=== PATIENT | female | born 1990 | race Caucasian/White ===

== ENCOUNTER → 2018-03-07 14:36 | Outpatient (CLI) | payer MEDICAID, SELFPAY ==
[2018-03-10 14:29] LABS: HPV Reflexed? NOT INDICATED
== END ==
PROVIDERS: Visit Provider Obstetrics & Gynecology
DX: Z12.4 Encounter for screening for malignant neoplasm of cervix (principal); Z12.72 Encounter for screening for malignant neoplasm of vagina
CPT/HCPCS: 88175; G0145

== ENCOUNTER → 2018-06-28 09:12 | Outpatient (CLI) | payer MEDICAID, SELFPAY | PROVIDERS: Family Provider Nurse Practitioner Family; PCP Nurse Practitioner Family; Referring Provider Internal Medicine Cardiovascular Disease; Visit Provider Internal Medicine Cardiovascular Disease | DX: R55 Syncope and collapse (principal) | CPT/HCPCS: 93225; 93226 ==

== ENCOUNTER → 2019-06-26 | Outpatient (CLI) | payer MEDICAID, SELFPAY ==
[2019-06-26 09:42] VITALS: BMI 40.1
[2019-07-01 14:07] LABS: Age Gdln ACOG Testing 30-65 (.)
[2019-07-02 12:45] LABS: HPV APTIMA, High Risk Negative (Negative)
[2019-07-02 12:52] LABS: HPV Reflexed? YES, CHARGE PATIENT
== END | disposition home or self-care (01) ==
LOC: LABSPEC 14:22
PROVIDERS: Visit Provider Obstetrics & Gynecology
DX: Z12.4 Encounter for screening for malignant neoplasm of cervix (principal)
CPT/HCPCS: 87624; 88175; G0145

== ENCOUNTER → 2020-07-22 13:42 | Outpatient (CLI) | payer MEDICAID, SELFPAY ==
[2020-06-24 08:47] VITALS: BMI 38.0
[2020-07-28 20:06] LABS: HPV APTIMA, High Risk Negative (Negative)
== END ==
PROVIDERS: Visit Provider Obstetrics & Gynecology
DX: Z12.4 Encounter for screening for malignant neoplasm of cervix (principal)
CPT/HCPCS: 87624; 88175; G0145

== ENCOUNTER 2023-07-20 22:00 | Inpatient (IN) | payer MEDICAID, SELFPAY ==
[2023-07-20] MEDS: Lactated Ringers 1,000 ML 200 ML IV (22:20)
[2023-07-20 22:27] VITALS: BP 121/66; PULSE 107
--- NOTE | 2023-07-20 22:42 | HP.PCM.OB_ITS ---
HPI - General General Date of Admission: 07/20/23 Date of Service: 07/20/23 Chief Complaint: abd pain HPI Narrative YOKO NICOLE, is a 33 F who presents complaining of abdominal pain has gotten worse and worse throughout the evening. She has known history of P PROM that occurred likely within the last 5 to 7 days. She was seen by maternal- medicine earlier this week and again yesterday and counseled on risk benefits and alternatives and patient wanted expectant management. She denies any fevers or chills. She just started having increased abdominal pain and it became more regular and she arrived to labor and delivery for evaluation. Maternal Data Information Final ELIER: [birth year]22 [facility] Medical History (Updated 07/20/23 @ 22:[address] Abby Gurrola MD) Asthma Cardiac arrest (09/2016) Hiatal hernia Hyperlipidemia Obesity Postoperative atrial fibrillation (09/2016) Type 2 diabetes mellitus Home Medications albuterol sulfate 90 mcg/actuation aerosol inhaler 2 puff inhalation Q4H PRN PRN Wheezing ##1 10/22/16 [Rx Last Taken Unknown] aspirin 81 mg tablet,delayed release 81 mg PO DAILY afib 06/26/19 [History Last Taken 07/20/23] insulin detemir U-100 100 unit/mL subcutaneous solution (Levemir U-100 Insulin) 60 unit subcut QHS 06/24/20 [History Last Taken Unknown] loratadine 10 mg tablet 10 mg PO DAILY allergies 06/24/20 [History Last Taken 07/19/23] Allergy/AdvReac Type Severity Reaction Status Date / Time codeine Allergy Other Verified 07/20/23 22:22 nalbuphine HCl [From Nubain] Allergy Nausea Verified 07/20/23 22:22 oxycodone HCl [From Percocet] Allergy Nausea/Vom/ Verified 07/20/23 22:22 Diarrhea Family History Mother Hypertension Surgical History History of tonsillectomy Hx of cholecystectomy Vital Signs Vital Signs Vital Signs: 07/20/23 22:27 07/20/23 22:27 Pulse Rate 107 H Blood Pressure 121/66 H BP Systolic 121 BP Diastolic 66 Physical Exam Narrative Awake, alert, no acute distress, no rebound or guarding. No fundal tenderness. Patient appears very uncomfortable with contraction PARACHUTE TAPER exam cervix is approximately 1 cm thick, firm, posterior. No gross vaginal bleeding. Extremities: Trace edema. Brief ultrasound done transabdominally. Fetus is in the lower uterine segment. No measurable fluid. No heart tones detected. Labs Labs Labs: Blood Type O POSITIVE Antibody Screen NEGATIVE Hct 36.3 % (37-47) L Hgb 12.3 g/dL (12.0-15.0) Obstetrics Ultrasound Syphilis Total Ab Pending Rubella IgG Antibody 74.7 IU/mL Hep Bs Antigen Negative (Negative) Glucose 1 Hr 50 gm 198 mg/dL (70-140) H Gest Glucose Tolerance MG/DL Group B Strep DNA Negative (Negative) Assessment & Plan (1) Incomplete : PLAN: Patient has significant medical history significant for maternal obesity, advanced maternal age, type 2 diabetes. Known P PROM. There were heart tones yesterday. However today confirms incomplete with 16-week demise. Risk benefits and alternatives of expectant management versus Cytotec to help with the induction were discussed with the patient, her questions were answered to her satisfaction she desires to proceed with Cytotec. We discussed pain control measures. If becomes febrile will need antibiotics. Patient denies any holiness objections to blood products if needed. IV started. Revie wed with her possible risk for D&C if unable to deliver placenta spontaneously. Patient states understanding and agreement with plan. Patient partner is present (2) 16 weeks gestation of :
[2023-07-20 22:43] LABS: Absolute Lymphocyte Count 2.17 X10^3/uL (0.83-4.51); Absolute Neutrophil Count 17.6 X10^3/uL (2.0-7.7); Basophil# 0.07 X10^3/uL; Basophil% 0.3 % (0-1); Eosinophil# 0.08 X10^3/uL; Eosinophils% 0.4 % (0-5); Hematocrit 36.3 % (37-47); Hemoglobin 12.3 g/dL (12.0-15.0); Lymphocyte # 2.17 X10^3/ul (0.83-4.51); Lymphocyte % 10.2 % (19-41); Mean Corp Hgb Conc 33.9 g/dL (32-36); Mean Corpuscular Hgb 27.2 pg (27.0-32.0); Mean Corpuscular Volume 80.3 fL (81-99); Mean Platelet Vol. 9.6 fl (6.2-12.0); Monocyte# 1.09 X10^3/uL; Monocyte% 5.1 % (0-10); NRBC Flagged by Analyzer 0 % (0-5); Neutrophil % 82.4 % (47-70); Platelet Count 199 K/mm3 (150-450); RBC Distribution Width CV 15.6 % (11.6-14.6); RBC Distribution Width SD 45.3 fl (35.1-43.9); Red Blood Count 4.52 M/mm3 (4.2-5.4); White Blood Count 21.4 K/mm3 (4.4-11.0)
[2023-07-20] MEDS: fentaNYL 100 MCG/2 ML Ampul IV (23:17)
[2023-07-20] MEDS: 0.9% Saline Lock 10 ML Syringe IV (23:22)
[2023-07-20 23:24] LABS: Syphilis Antibodies Non-reactive
[2023-07-20] MEDS: miSOPROStol 200 MCG Tablet VAGINAL (23:57)
[2023-07-21] VITALS (50 sets, daily range): BP systolic 86–129; BP diastolic 46–72; PULSE 98–144; RESP 14–16; TEMP 36.2–38.6; O2SAT 93–100; BMI 34.1
[2023-07-21 00:33] LABS: Bedside Glucose 123 mg/dL (74-106)
[2023-07-21] MEDS: HYDROmorphone 1 MG/ML Syringe IV (00:42)
[2023-07-21] MEDS: Cefazolin 2 GM in 0.9% Normal Saline (100mL Bag) 100 ML IV (01:20)
--- NOTE | 2023-07-21 01:30 | PLAC_PTH ---
PATIENT: YOKO NICOLE LOC: [facility] U#:[id number] AGE/SX: 33/F ROOM: WP021 RE07/20/[address]: Dr. Abby Gurrola MD : 1990 BED: 1 DIS: 07/21/2023 SPEC #: [id number] RECD: 07/21/23 12:19 STATUS: YENIFER ROCIO #: [id number] RISA: 07/21/23 01:[address]: Abby Gurrola DEPT: SURGICAL PATHOLOGY RECD BY: Venus Martínez Tissues: Placenta, NOS Procedures: Surgery Specimen Level V HEADER OPERATION: Vaginal delivery PRE-OP DIAGNOSIS: PPROM second trimester TISSUE SUBMITTED: Placenta MICROSCOPIC DIAGNOSIS Frazier placenta (129.3 gm): Umbilical cord - trivascular with early acute funisitis. Placental membranes - acute chorioamnionitis with degenerative changes. Placental disc - immature villi consistent with gestational age. Acute deciduitis. AM:sabrina 07/26/2023 MICROSCOPIC DESCRIPTION Slides are reviewed. GROSS DESCRIPTION Received in fixative is one container labeled with the patient's name and designated placenta. The specimen consists of macerated placental disc fragments (>20) ranging in size from 1.0 to 11.0 cm and weighing in aggregate 129.3 gm. Blood clot measures 5.0 x 3.0 x 1.0 cm. Detached umbilical cord measures 18.0 x 0.6 cm. The membranes appear to be ruptured at the edge of the placental disc. The largest fragments of the placental disc measures 13.0 x 6.0 x 2.0 cm. Serial section do not reveal mass lesions. Supervisor Stave Cutting sections are submitted in six cassettes as follows: 1 & 2 - umbilical cord, 3??membrane roll, 4-6 - placental disc. / AM:sabrina 07/25/2023 TC:2 CPT: 76339
[2023-07-21] MEDS: Oxytocin 10 UNITS/ML Vial IM (01:45)
[2023-07-21] MEDS: miSOPROStol 200 MCG Tablet 1000 MCG RC (01:45)
--- NOTE | 2023-07-21 01:55 | EX.PCM.OBRPT ---
Assessment & Plan (1) 16 weeks gestation of : (2) Incomplete : (3) Retained placenta: Maternal Data Information Gestational age: 16w 5 d Vaginal Delivery Maternal Presentation Maternal Presentation: Active Labor Maternal Presentation: no heart tones Operative Information Date of Procedure: 07/21/23 Pre-Operative Diagnosis: 16 week incomplete SAB, retained placenta Post-Operative Diagnosis: same Surgery / Procedure Performed: - (Spontaneous w/ retained placenta) Type of Anesthesia: None (MAC) Anesthesiologist: Jorge Ni Drain: - (none) Estimated Blood Loss: 800 Fluids Replaced: 1000 Time of Delivery: 00:50 Findings Description of Procedure: Patient arrived to labor and delivery with significant pain consistent with contractions. I arrived evaluated the patient. She was approximately 1 to 2 cm and 50% effaced. An ultrasound was done which would confirm there were no heart tones. Patient was then given vaginal Cytotec x 1 to help augment the labor. She then had a spontaneous vaginal delivery of a 16-week fetus without cardiac activity. The cord was clamped and cut. The placenta did not deliver. I had the patient bear down and she passed several large clots when EBL was approximately 300 cc I discussed with the patient we need to proceed with a D&C. Anesthesia was consulted and she was taken to the operating room where she was given MAC anesthesia. The vagina was prepped and patient was draped. Under ultrasound guidance I did a banjo curette and used the banjo curette and the ring forceps to tease out large portions of the placenta. I then used the banjo curette under ultrasound guidance to finish removing placental fragments. There was a bright white endometrial stripe and bleeding was minimal at the end of the procedure. EBL during this portion the procedure was 500 cc. This gave a total of 800 cc blood loss for the delivery on the D&C. Patient was awakened and taken the recovery room in stable condition. Sponge and instrument counts were correct. Patient was given 2 g of Ancef prophylaxis. Presentation: Complete Breech Amniotic Membrane Rupture Type: Spontaneous Time of Membrane Rupture: unknown Amniotic Fluid Description: Cloudy Placental Delivery Description: Curettage Placenta Disposition: Sent to Pathology Cord Vessel Description: unknown Cord Entanglement: None A Gender: Female (1 minute): 0 (5 minute): 0 Post Vaginal Delivery Medications Given After Delivery: IV Pitocin, IM Pitocin and - (cytotec 1000 mcg) Episiotomy Description: None Laceration: None Complication Complications: None
[2023-07-21] MEDS: Oxytocin 15 Units/NS 250ml 15 UNITS/250 ML IV.SOLN 83 UNITS IV (02:00)
[2023-07-21 02:51] LABS: Bedside Glucose 117 mg/dL (74-106)
[2023-07-21] MEDS: Ibuprofen 600 MG Tablet PO ×2 (03:15→11:37)
--- NOTE | 2023-07-21 04:05 | NURSING ---
0340 Nicholas Asencioeat in to assess patient. Patient states she is now feeling better and feels as if it was a panic attack. Orders received to place non rebreather @10 L O2. O2 saturation 100%. 0345 CPT here for EKG. 6103 Lab here for stat cbc RN mineral wool insulation supervisor on floor and updated on patient status.
--- NOTE | 2023-07-21 04:14 | NURSING ---
Patient requesting o2 be removed. She remains 98-99% on room air. Sleeping intermittently awakens easily with care.
[2023-07-21 04:26] LABS: Absolute Lymphocyte Count 1.06 X10^3/uL (0.83-4.51); Absolute Neutrophil Count 18.7 X10^3/uL (2.0-7.7); Basophil# 0.08 X10^3/uL; Basophil% 0.4 % (0-1); Eosinophil# 0.03 X10^3/uL; Eosinophils% 0.1 % (0-5); Hematocrit 33.4 % (37-47); Lymphocyte # 1.06 X10^3/ul (0.83-4.51); Lymphocyte % 5.1 % (19-41); Mean Corp Hgb Conc 32.9 g/dL (32-36); Mean Corpuscular Hgb 27.1 pg (27.0-32.0); Mean Corpuscular Volume 82.3 fL (81-99); Mean Platelet Vol. 9.3 fl (6.2-12.0); Monocyte# 0.42 X10^3/uL; NRBC Flagged by Analyzer 0 % (0-5); Neutrophil # 18.68 X10^3/uL (2.7-7.7); Neutrophil % 90.8 % (47-70); Platelet Count 169 K/mm3 (150-450); RBC Distribution Width CV 15.7 % (11.6-14.6); RBC Distribution Width SD 47.1 fl (35.1-43.9); Red Blood Count 4.06 M/mm3 (4.2-5.4); White Blood Count 20.6 K/mm3 (4.4-11.0)
[2023-07-21] MEDS: LACTATED RINGERS 500 ML 999 ML IV (04:35)
[2023-07-21] MEDS: Acetaminophen 500 MG Tablet 1000 MG PO ×2 (04:39→11:37)
--- NOTE | 2023-07-21 07:01 | NURSING ---
head circumference=7.5in or 18cm
--- NOTE | 2023-07-21 07:21 | PCM.DC ---
Discharge Instructions Diet Discharge Diet: No restrictions Activity May resume sexual activity in: 6 weeks Dressing / Incision Call your doctor if your incision/area has: Continuous Slow Oozing, Sudden Increased Bleeding, Foul Smelling Discharge and Swelling at the incision site Call your doctor if you observe: Fever of 101 or Higher and Inability to urinate Follow Up Care Please Follow Up With: Abby Gurrola MD When: Follow up with our office in 1-2 and 6 weeks or as needed. [phone] or send a [employer] message Test Results: Test results from this visit will be discussed in further detail at your follow-up appointment, if applicable. Discharge Plan Admission Admit Date/Time: 07/20/23 22:00 Attending Provider: Abby Gurrola Discharge Orders/Prescriptions Prescriptions: No Action aspirin 81 mg tablet,delayed release (DR/EC) 81 mg PO DAILY loratadine 10 mg tablet 10 mg PO DAILY albuterol sulfate 1 INHALER inhaler 2 puff inhalation Q4H PRN PRN (Reason: Wheezing) Qty: 1 2RF metformin 500 mg tablet extended release 24 hr 1,000 mg PO BID sertraline 50 mg tablet 50 mg PO DAILY Humulin N NPH U-100 Insulin 100 unit/mL suspension 22 unit subcut QPM insulin lispro 100 unit/mL insulin pen 10 unit subcut TID Patient Comments: 5-10 units with meals depending on amount of carbs in meal
[2023-07-21] MEDS: Lactated Ringers 1,000 ML 100 ML IV (08:15)
[2023-07-21] MEDS: metFORMIN (XR) 500 MG Tablet 1000 MG PO (08:41)
[2023-07-21 12:42] LABS: Hematocrit 29.7 % (37-47); Mean Corp Hgb Conc 33.7 g/dL (32-36); Mean Corpuscular Hgb 27.2 pg (27.0-32.0); Mean Corpuscular Volume 80.7 fL (81-99); Mean Platelet Vol. 9.6 fl (6.2-12.0); Platelet Count 167 K/mm3 (150-450); RBC Distribution Width CV 15.6 % (11.6-14.6); RBC Distribution Width SD 46.4 fl (35.1-43.9); Red Blood Count 3.68 M/mm3 (4.2-5.4); White Blood Count 21.2 K/mm3 (4.4-11.0)
[2023-07-21 12:54] LABS: Absolute Lymphocyte Count 1.02 X10^3/uL (0.83-4.51); Absolute Neutrophil Count 18.8 X10^3/uL (2.0-7.7); Basophil% 0.5 % (0-1); Eosinophil# 0.06 X10^3/uL; Eosinophils% 0.3 % (0-5); Lymphocyte # 1.02 X10^3/ul (0.83-4.51); Lymphocyte % 4.8 % (19-41); Monocyte# 0.87 X10^3/uL; Monocyte% 4.1 % (0-10); NRBC Flagged by Analyzer 0 % (0-5); Neutrophil # 18.75 X10^3/uL (2.7-7.7); Neutrophil % 88.5 % (47-70)
[2023-07-21 23:12] LABS: Pathology Specimen OB SEE PATHOLOGY REPORT
== END 2023-07-21 13:45 | disposition home or self-care (01) | DRG 560 ==
LOC: WPOUT 22:03 → WP 22:03 → WPOUT 22:11 → WP 22:11
PROVIDERS: Admitting Provider Obstetrics & Gynecology; Visit Provider Obstetrics & Gynecology
DX: O03.4 Incomplete spontaneous abortion without complication (principal); Z37.1 Single stillbirth; O24.12 Pre-existing type 2 diabetes mellitus, in childbirth; E11.9 Type 2 diabetes mellitus without complications; O32.1XX0 Maternal care for breech presentation, not applicable or unspecified; Z79.4 Long term (current) use of insulin; E78.5 Hyperlipidemia, unspecified; O99.214 Obesity complicating childbirth; O99.284 Endocrine, nutritional and metabolic diseases complicating childbirth; Z79.82 Long term (current) use of aspirin; Z79.899 Other long term (current) drug therapy; Z3A.16 16 weeks gestation of pregnancy
CPT/HCPCS: 59050; 82962; 85025; 86780; 86850; 86900; 86901; 88307; 93005; 99221; J7120; A4216; G0378